=== PATIENT | female | born 1985 | race Caucasian/White ===

== ENCOUNTER 2018-02-16 | Emergency (ER) | END 2018-02-16 10:22 | disposition home or self-care (01) ==

== ENCOUNTER 2018-06-22 09:33 | Emergency (ER) | payer OTHER ==
[~2018-06-22] VITALS: Ht 167.6 cm; Wt 99.8 kg
[~2018-06-22 09:33] MED LIST: ALBU4 PO; ALBU90OI INH; Adipex-P37.5 M1 PO; BUPR150T2; CYCL10 PO; Flonase 0.05% N16 GM; HYDACE5 PO; IBUP800 PO; META800 PO; NAPR500 PO; Norco 5-325 Ta1 EACH PO; ONDA4ODT MM; Polytrim Eye Dr10 ML LEFTEYE; RXHYDACE PO; RXONDA4ODT MM; Valium5 MG PO
[2018-06-22 11:27] LABS: Source, Urine Voided
[2018-06-22 11:34] LABS: Bilirubin, Urine Neg (Neg); Blood, Urine 5+ (Neg); Glucose Qualitative, Urine Neg (Neg); Ketones, Urine Neg (Neg); Leukocyte Esterase, Urine 3+ (Neg); Nitrite, Urine Pos (Neg); Protein, Urine 2+ (Neg); Urobilinogen, Urine NORM (Normal)
[2018-06-22 11:40] LABS: Appearance, Urine Cloudy (Clear); Color, Urine Yellow (P-Yellow)
[2018-06-22 11:42] LABS: Red Blood Cells, Urine TNTC /hpf (0-2); Squamous Epithelial Cells Mod /hpf (Few); White Blood Cells, Urine TNTC /hpf (0-5)
[2018-06-22 11:43] LABS: Bacteria Many /hpf
[2018-06-22 12:10] LABS: BASOPHILS ABSOLUTE AUTO 0.01 K/mm3 (0.00-0.23); BASOPHILS PERCENT AUTO 0 % (0-2); EOSINOPHILS ABSOLUTE AUTO 0.14 K/mm3 (0.00-0.68); EOSINOPHILS PERCENT AUTO 1 % (0-6); Hematocrit 41.4 % (33.0-51.0); Hemoglobin 13.1 g/dL (11.5-16.0); IMMATURE GRAN PERCENT AUTO 1 % (0-1); LYMPHOCYTES ABSOLUTE AUTO 3.54 K/mm3 (0.84-5.20); LYMPHOCYTES PERCENT AUTO 30 % (21-46); MONOCYTES ABSOLUTE AUTO 0.62 K/mm3 (0.16-1.47); MONOCYTES PERCENT AUTO 5 % (4-13); Mean Corpuscular HGB 28.4 pg (26.0-34.0); Mean Corpuscular HGB Conc 31.6 g/dL (31.5-36.5); Mean Corpuscular Volume 90 fL (80-100); NEUTROPHILS ABSOLUTE AUTO 7.24 K/mm3 (1.96-9.15); NEUTROPHILS PERCENT AUTO 62 % (41-73); Platelet Count 233 K/mm3 (150-400); RDW Coefficient Variation 12.6 % (11.7-14.2); RDW Standard Deviation 41.4 fL (35.1-46.3); Red Blood Cell Count 4.61 M/mm3 (3.80-5.20); White Blood Cell Count 11.65 K/mm3 (4.00-11.30)
[2018-06-22 12:29] LABS: Alanine Aminotransfer (ALT/SGP 24 U/L (12-78); Albumin, Blood 3.4 g/dL (3.4-5.0); Albumin/Globulin Ratio 0.8 (0.8-1.8); Alk Phos 75 U/L (50-136); Anion Gap 6 mmol/L (6-16); Aspartate Aminotrans (AST/SGOT 18 U/L (12-37); Bilirubin, Total 0.4 mg/dL (0.1-1.0); Blood Urea Nitrogen 17 mg/dL (8-24); Bun/Creatinine Ratio 20.5 (12.0-20.0); CO2, Blood 25 mmol/L (21-32); Calcium, Blood 8.4 mg/dL (8.5-10.1); Chloride, Blood 106 mmol/L (98-108); Creatinine, Blood 0.83 mg/dL (0.40-1.00); Globulin, Blood 4.4 g/dL (2.2-4.0); Glomerular Filtration Rate >60 (60-); Glucose, Blood 75 mg/dL (70-99); Potassium, Blood 4.1 mmol/L (3.5-5.5); Sodium, Blood 137 mmol/L (136-145); Total Protein, Blood 7.8 g/dL (6.4-8.2)
[2018-06-22] MEDS ORDERED: Bactrim Ds Tab1 EACH PO (14:14)
[2018-06-22] MEDS ORDERED: CYCL10 PO (14:14)
== END 2018-06-22 14:21 | disposition home or self-care (01) ==
LOC: ER 09:33
PROVIDERS: Nurse Practitioner Family
DX: M54.42 Lumbago with sciatica, left side (principal); N39.0 Urinary tract infection, site not specified; J45.909 Unspecified asthma, uncomplicated; Z79.51 Long term (current) use of inhaled steroids
CPT/HCPCS: 36415; 74176; 80053; 81001; 81025; 85025; 87077; 87086; 87186; 96360; 96372; 99284-25; J1885; J7030

== ENCOUNTER → 2023-05-15 | Outpatient (CLI) | payer BC, OTHER ==
[~2023-05-15] MED LIST changes: +Bactrim Ds Tab1 EACH PO; +Flomax0.4 MG PO
[2023-05-20 10:10] LABS: HPV 16 Negative (Negative); HPV 18 Negative (Negative); HPV OTHER HR TYPES Negative (Negative)
== END ==
LOC: LAB 08:56 → LAB SHORT 08:56
PROVIDERS: Family Medicine
DX: Z12.4 Encounter for screening for malignant neoplasm of cervix (principal)
CPT/HCPCS: 87624; G0145